=== PATIENT | male | born 1970 | race Caucasian/White ===

== ENCOUNTER 2017-01-16 05:48 | Emergency (ER) | payer OTHER ==
[~2017-01-16] VITALS: Ht 172.7 cm; Wt 81.7 kg
[~2017-01-16 05:48] MED LIST: BACTRIM DS TAB1 EACH PO; KEFLEX500 MG PO; NOHOMEMEDICATIONS
[2017-01-16] MEDS ORDERED: TUMS (05:54)
[2017-01-16 06:28] VITALS: BP 138/90
== END 2017-01-16 06:29 | disposition home or self-care (01) ==
LOC: ER 05:48
DX: R10.9 Unspecified abdominal pain (principal); F17.210 Nicotine dependence, cigarettes, uncomplicated; F12.10 Cannabis abuse, uncomplicated